=== PATIENT | male | born 1955 | race Caucasian/White ===

== ENCOUNTER 2021-01-06 07:39 | Observation (INO) ==
[~2021-01-06 07:39] MED LIST: Buffered Lidocaine 1% SYRIN 1 ml INTRADERM ONE; DiMENhydriNATE IV 50 mg/ml 1 ml VIAL IV PUSH ONE; HYDROcodone/ACETAMIN 5/325 mg TAB PO PRN; Lactated Ringers 1000 ml BAG 1,000 ML IV SCH; Metoclopramide 5 MG/ML VIAL (10 mg) IV PRN; Naloxone 0.4 mg VIAL 0.4 mg/ml 1 ml VIAL IV PRN; Ondansetron 4 mg VIAL 2 MG/ML 2 ml VIAL IV PRN; fentaNYL 100 mcg/2 ml 50 MCG/ML VIAL IV PRN
[2021-01-06] MEDS ORDERED: ceFAZolin 2 GM in NS PREMIX 2 GM/100 ML BAG IVPB ONE (07:53)
[2021-01-06] MEDS ORDERED: DiMENhydriNATE IV 50 mg/ml 1 ml VIAL ONE (07:53)
[2021-01-06] MEDS ORDERED: Ketamine HCL 50 mg/ml 10 ml VIAL (500 MG) ONE (08:09)
[2021-01-06] MEDS ORDERED: Lidocaine 2% PF 5 ML VIAL ONE (08:09)
[2021-01-06] MEDS ORDERED: Propofol 10 MG/ML 20 ML BTL ONE ×2 (08:09→11:34)
[2021-01-06] MEDS ORDERED: fentaNYL 100 mcg/2 ml 50 MCG/ML VIAL ONE (08:59)
[2021-01-06] MEDS ORDERED: Midazolam 2 mg/2 ml VIAL 1 mg/ml 2 ml VIAL (2 mg) ONE ×2 (08:59→11:02)
[2021-01-06] MEDS ORDERED: Dexamethasone IV 4 MG/ML VIAL 1 ml VIAL ONE ×2 (09:00→10:58)
[2021-01-06] MEDS ORDERED: Bupivacaine 0.5% W/EPI SDV 10 ML VIAL INJ ONE (09:00)
[2021-01-06] MEDS ORDERED: EPHEDrine (Pressors) 50 MG/ML VIAL ONE (10:44)
[2021-01-06] MEDS ORDERED: Ondansetron 4 mg VIAL 2 MG/ML 2 ml VIAL ONE (10:58)
[2021-01-06] MEDS ORDERED: Ondansetron ODT 4 mg TAB 4 MG TAB PO PRN (11:35)
[2021-01-06] MEDS ORDERED: diPHENhydraMINE 25 mg TAB PO PRN (11:35)
[2021-01-06] MEDS ORDERED: diPHENhydraMINE IV 50 MG/ML 1 ml VIAL (BENADRYL) IV PRN (11:35)
[2021-01-06] MEDS ORDERED: Ondansetron 4 mg VIAL 2 MG/ML 2 ml VIAL IV PRN (11:35)
[2021-01-06] MEDS ORDERED: Lactulose 30 ml UDC PO PRN (11:35)
[2021-01-06] MEDS ORDERED: Magnesium Hydroxide LIQ 30 ML UDC PO PRN (11:35)
[2021-01-06] MEDS ORDERED: Lactated Ringers 1000 ml BAG 1,000 ML IV SCH (12:00)
[2021-01-06] MEDS: ceFAZolin 1 GM ADVAN 1 GM in NS 0.9% 50 ML 50 ML IVPB SCH (17:42)
[2021-01-06] MEDS: Magnesium Hydroxide LIQ 30 ML UDC PO SCH (20:46)
[2021-01-06] MEDS ORDERED: BENAZEPRIL 20 MG PO SCH (21:00)
[2021-01-07] MEDS: ceFAZolin 1 GM ADVAN 1 GM in NS 0.9% 50 ML 50 ML IVPB SCH ×2 (02:20→10:03)
[2021-01-07 06:27] LABS: Hematocrit 35 % (42-52); Hemoglobin 12.4 g/dL (14.0-18.0); Mean Platelet Volume 9.1 fL (7.4-10.4); Platelet Count 194 10^3/uL (150-450)
[2021-01-07 06:47] LABS: Calcium 9.6 mg/dL (8.6-10.3); EGFR African American 96.3 (>60); EGFR Non-African American 79.6 (>60); Potassium 4.5 mmol/L (3.5-5.0)
[2021-01-07] MEDS ORDERED: Vitamin THERAPEUTIC TAB PO SCH (09:00)
[2021-01-07] MEDS: Magnesium Hydroxide LIQ 30 ML UDC PO SCH (10:04)
[2021-01-07 11:15] VITALS: BP 125/64
== END 2021-01-07 13:45 | disposition home or self-care (01) ==
LOC: OR 07:39 → SSU 07:39
PROVIDERS: ADMIT Orthopaedic Surgery Adult Reconstructive Orthopaedic Surgery; ATTEND Orthopaedic Surgery Adult Reconstructive Orthopaedic Surgery